=== PATIENT | male | born 2000 | race Caucasian/White ===

== ENCOUNTER 2022-12-25 01:53 | Emergency (ER) | payer OTHER ==
[~2022-12-25] VITALS: Ht 177.8 cm; Wt 68.0 kg
--- NOTE | 2022-12-25 02:12 | ED Psychosocial ---
General Chief Complaint: Substance Abuse Stated Complaint: ALCOHOL INTOXICATION Source: patient, EMS Exam Limitations: intoxication History of Present Illness Date Seen by Provider: Dec 25, 2022 Time Seen by Provider: 02:00 Initial Comments Patient is a 22-year-old male brought into the emergency department by EMS chief complaint intoxication, vomiting. Apparently the patient was found outside a local bar laying on the ground vomiting. He is alert, conversant currently. He complains of nausea. He states that he does not drink daily. He states that he drinks beer, unknown amount tonight. He denies any pain. No shortness of breath, fevers. No complaints of injury. He is not really sure why he is here. Has vomit stains all down the front of his chart. Severity: moderate Associated Symptoms: ingestion Allergies and Home Medications Allergies Coded Allergies: No Known Drug Allergies (Unverified , 12/25/22) Patient Home Medication List Home Medication List Reviewed: Yes Review of Systems Constitutional: see HPI EENTM: no symptoms reported Respiratory: no symptoms reported Cardiovascular: no symptoms reported Gastrointestinal: nausea, vomiting Genitourinary: no symptoms reported Musculoskeletal: no symptoms reported All Other Systems Reviewed Negative Unless Noted: Yes Physical Exam Vital Signs - First Documented 12/25/22 01:55 Pulse 79 B/P (MAP) 139/88 (105) Pulse Ox 97 O2 Delivery Room Air Capillary Refill : Height, Weight, BMI Height: '" Weight: lbs. oz. kg; BMI Method: General Appearance: WD/WN, no apparent distress, thin, other (dissheveled; covered in vomit) HEENT: PERRL/EOMI, other (+ nystagmus) Respiratory: lungs clear, normal breath sounds, no respiratory distress, no accessory muscle use Cardiovascular: regular rate, rhythm Gastrointestinal: normal bowel sounds, non tender, soft Extremities: normal range of motion, normal inspection Neurologic/Psychiatric: alert, normal mood/affect Appearance/Memory: disheveled Behavior/Eye Contact: cooperative, normal speech Thoughts/Hallucinations: normal thought pattern Skin: normal color, warm/dry Progress/Results/Core Measures Results/Orders My Orders Orders - NAVID SCHMITZ MD Ed Iv/Invasive Line Start (12/25/22 02:06) Lactated Ringers (Lr 1000 Ml Iv Solution (12/25/22 02:15) Ondansetron Injection (Zofran Injectio (12/25/22 02:15) Medications Given in ED Current Medications Medications Dose Ordered Sig/E[place] Route Start Time Stop Time Status Last Admin Dose Admin Ondansetron HCl 8 mg ONCE ONCE IVP 12/25/22 02:15 12/25/22 02:17 DC 12/25/22 02:17 8 MG Vital Signs/I&O 12/25/22 12/25/22 01:55 02:52 Pulse 79 B/P (MAP) 139/88 (105) 122/81 Pulse Ox 97 O2 Delivery Room Air Departure Impression Primary Impression: Alcohol intoxication Qualified Codes: F10.920 - Alcohol use, unspecified with intoxication, uncomplicated Additional Impression: Vomiting Qualified Codes: R11.2 - Nausea with vomiting, unspecified Disposition: 01 HOME, SELF-CARE Condition: Stable Departure-Patient Inst. Decision time for Depature: 02:38 Referrals: UNKNOWN (PCP/Family) Primary Care Physician Patient Instructions: ALCOHOL AND SUBSTANCE ABUSE Add. Discharge Instructions: Follow up with your doctor next week. Watch your alcohol intake as drinking heavily can damage your liver and cause medical problems that are not fixable. NAVID SCHMITZ MD Dec 25, 2022 02:12
[2022-12-25] MEDS ORDERED: ONDANSETRON 4 MG/2 ML (SDV) Z0FRAN IVP ONE (02:15)
[2022-12-25] MEDS ORDERED: LACTATED RINGERS 1,000 ML IV SCH (02:15)
[2022-12-25 02:52] VITALS: BP 122/81
== END 2022-12-25 02:53 | disposition home or self-care (01) ==
LOC: ER 01:56
DX: F10.129 Alcohol abuse with intoxication, unspecified (principal)